=== PATIENT | male | born 1960 ===

== ENCOUNTER 2020-08-15 08:31 | Emergency (ER) | payer OTHER ==
[~2020-08-15] VITALS: Ht 188 cm; Wt 93.9 kg
[2020-08-15] MEDS ORDERED: CRESTOR10 MG (09:02)
[2020-08-15] MEDS ORDERED: ZESTRIL20 MG (09:03)
== END 2020-08-15 10:40 | disposition home or self-care (01) ==
LOC: ER 08:31
DX: G89.11 Acute pain due to trauma (principal); M54.2 Cervicalgia